=== PATIENT | female | born 1985 | race Caucasian/White ===

== ENCOUNTER 2017-08-04 10:35 | Emergency (ER) | payer SELFPAY ==
[~2017-08-04] VITALS: Ht 157.5 cm; Wt 43.0 kg
[2017-08-04 10:43] VITALS: BP 119/70; PULSE 72; RESP 16; TEMP 98.5; O2SAT 98
[2017-08-04 11:22] LABS: BLOOD, URINE NEG (NEG); GLUCOSE,URINE NEG (NEG); KETONE, URINE NEG (NEG); NITRITE,URINE NEG (NEG)
[2017-08-04] MEDS ORDERED: IBUP-1129 PO (11:22)
[2017-08-04] MEDS ORDERED: HYDR-3516 PO (11:22)
[2017-08-04 11:24] LABS: METHOD OF COLLECTION CLEAN CATCH; URINE COLOR YELLOW (YELLW/STRAW)
[2017-08-04 11:26] LABS: BACTERIA, URINE MOD /hpf; COMMENT (UR) CULTURE INDICATED; CULTURE IF INDICATED CULTURE INDICATED; SQUAMOUS EPITHELIAL CELL URINE 0-5 /hpf (0-5); WBC, URINE 0-2 /hpf (0-5)
[2017-08-04] MEDS ORDERED: KETOROLAC TROMETHAMINE 30 MG/ML (IVP) VIAL IV PUSH ONE (11:30)
[2017-08-04] MEDS ORDERED: ONDANSETRON HCL 4 MG/2 ML VIAL IV PUSH ONE (11:30)
--- NOTE | 2017-08-04 11:31 | PD ---
HPI Chief Complaint: Flank/Kidney Pain Time Seen by Provider: 11:21 Travel History International Travel<30 days: No Contact w/Intl Traveler<30days: No Traveled to known affect area: No History of Present Illness HPI 32yo F with PMH of frequent UTIs here with right sided back pain. States she has been having urinary symptoms for 1 month and told bactrim that she had before for 7 days. However, the urinary symptoms has not improved and now she has been having right back pain for 2 weeks. Pain is sharp, constant and nonradiating. She took ibuprofen and oxycodone which helped with pain. Associated with chills and nausea. Denies any fever, chest pain, sob, vomiting , abdominal pain, vaginal discharge, trauma, focal weakness or numbness. Pt is on her menstrual period right now. PFSH Past Medical History Asthma: Yes (EXERCISE INDUSED - NO MEDS) Blood Disorders: No Cancer: No Cardiovascular Problems: Yes High Cholesterol: Yes Diminished Hearing: No Endocrine: No Gastrointestinal Disorders: No Genitourinary: No Immune Disorder: No Implanted Vascular Access Dvce: No Musculoskeletal: No Neurologic: No Psychiatric: No Reproductive: No Respiratory: No Pancreatitis: Yes (past med hx of) ?: Not LMP: 07/31/17 : 0 Past Surgical History Section: Yes Oral Surgery: Yes (WISDOM TEETH 2000) Social History Alcohol Use: Yes (monthly , socially) Tobacco Use: Yes (1 ppd) Substance Use: No Allergies-Medications (Allergen,Severity, Reaction): Coded Allergies: No Known Allergies (Verified , 08/04/17) Reported Meds & Prescriptions Reported Meds & Active Scripts Active Reported Motrin Ib (Ibuprofen) 200 Mg Tablet 800 Mg PO ONCE Hydrocodone-Acetaminophen 5-325 mg Tab 1 Tab PO Q6H PRN Review of Systems Except as stated in HPI: all other systems reviewed are Neg Physical Exam Narrative GENERAL: 32yo F in mild distress. SKIN: Focused skin assessment warm/dry. HEAD: Atraumatic. Normocephalic. EYES: Pupils equal and round. No scleral icterus. No injection or drainage. CARDIOVASCULAR: Regular rate and rhythm. No murmur appreciated. RESPIRATORY: No accessory muscle use. Clear to auscultation. Breath sounds equal bilaterally. GASTROINTESTINAL: Abdomen soft, non-tender, nondistended. No rebound tenderness or guarding. BACK: No midline ttp thoracic or lumbar spine. +Mild CVA tenderness on right. MUSCULOSKELETAL: No obvious deformities. No clubbing. No cyanosis. No edema. NEUROLOGICAL: Awake and alert. No obvious cranial nerve deficits. Motor grossly within normal limits. Normal speech. Sensation intact. PSYCHIATRIC: Appropriate mood and affect; insight and judgment normal. Data Data Last Documented VS Vital Signs Date Time Temp Pulse Resp B/P (MAP) Pulse Ox O2 Delivery O2 Flow Rate FiO2 08/04/17 10:43 98.5 72 16 119/70 (86) 98 Room Air Orders Orders Urinalysis - C+S If Indicated (08/04/17 10:59) Ed Urine Pregnancytest Poc (08/04/17 10:59) Urine Culture (08/04/17 11:00) Complete Blood Count With Diff (08/04/17 11:27) Basic Metabolic Panel (Bmp) (08/04/17 11:27) Lactic Acid Sepsis Protocol (08/04/17 11:27) Lipase (08/04/17 11:27) Ondansetron Inj (Zofran Inj) (08/04/17 11:30) Ketorolac Inj (Toradol Inj) (08/04/17 11:30) Ceftriaxone Inj (Rocephin Inj) (08/04/17 12:30) Morphine Inj (Morphine Inj) (08/04/17 13:15) Labs Laboratory Tests Test 08/04/17 11:00 08/04/17 11:40 Urine Collection Type CLEAN CATCH Urine Color YELLOW Urine Turbidity CLEAR Urine pH 7.0 Urine Specific [place] 1.012 Urine Protein NEG mg/dL Urine Glucose (UA) NEG mg/dL Urine Ketones NEG mg/dL Urine Occult Blood NEG Urine Nitrite NEG Urine Bilirubin NEG Urine Leukocyte Esterase NEG Urine WBC 0-2 /hpf Urine Squamous Epithelial Cells 0-5 /hpf Urine Bacteria MOD /hpf Microscopic Urinalysis Comment CULTURE INDICATED Urine Collection Time 11:00 White Blood Count 8.4 TH/MM3 Red Blood Count 4.28 MIL/MM3 Hemoglobin 12.1 GM/DL Hematocrit 37.0 % Mean Corpuscular Volume 86.6 FL Mean Corpuscular Hemoglobin 28.3 PG Mean Corpuscular Hemoglobin Concent 32.7 % Red Cell Distribution Width 13.9 % Platelet Count 307 TH/MM3 Mean Platelet Volume 8.3 FL Neutrophils (%) (Auto) 67.1 % Lymphocytes (%) (Auto) 25.5 % Monocytes (%) (Auto) 6.3 % Eosinophils (%) (Auto) 0.8 % Basophils (%) (Auto) 0.3 % Neutrophils # (Auto) 5.7 TH/MM3 Lymphocytes # (Auto) 2.1 TH/MM3 Monocytes # (Auto) 0.5 TH/MM3 Eosinophils # (Auto) 0.1 TH/MM3 Basophils # (Auto) 0.0 TH/MM3 CBC Comment DIFF FINAL Differential Comment Blood Urea Nitrogen 10 MG/DL Creatinine 0.62 MG/DL Random Glucose 90 MG/DL Calcium Level 8.9 MG/DL Sodium Level 140 MEQ/L Potassium Level 3.9 MEQ/L Chloride Level 106 MEQ/L Carbon Dioxide Level 27.6 MEQ/L Anion Gap 6 MEQ/L Estimat Glomerular Filtration Rate 110 ML/MIN Lactic Acid Level 0.6 mmol/L Lipase 173 U/L MDM Medical Decision Making Medical Screen Exam Complete: Yes Emergency Medical Condition: Yes Differential Diagnosis Pyelonephritis vs. musculoskeletal pain Narrative Course 32yo well appearing female here with right sided back pain. Pain is more right flank area. No fever, IVDA, focal weakness or numbness. Labs reviewed, no leukocytosis. Creatinine normal. Lactic acid normal. Lipase normal. No abdominal pain on exam. UA showed no blood. moderate bacteria and culture indicated so will give ceftriaxone 1gm IV here. Pt given toradol and zofran and reevaluated at bedside and said that nausea has resolved but pain has not improved. Pt given morphine with improvement of pain. Return precautions given. Diagnosis Primary Impression: UTI (urinary tract infection) Qualified Codes: N39.0 - Urinary tract infection, site not specified Patient Instructions: General Instructions Departure Forms: Tests/Procedures Additional Instructions: Please follow up with [facility] in 3-7 days. Return to the ED if symptoms worsen. Med/Other Pt SpecificInfo: Prescription(s) given Scripts Acetaminophen (Tylenol) 325 Mg Tab 650 MG PO Q6H Y for PAIN SCALE 1 TO 4, #20 TAB 0 Refills Prov: Silvana Drew 08/04/17 Cephalexin (Keflex) 500 Mg Cap 500 MG PO Q12H for Infection for 7 Days, #14 CAP 0 Refills Prov: Silvana Drew 08/04/17 Disposition: 01 DISCHARGE HOME Condition: Stable Silvana Drew DO Aug 04, 2017 11:31
[2017-08-04 11:49] LABS: AUTOMATED NEUTROPHIL # 5.7 TH/MM3 (1.8-7.7); BASOPHIL % 0.3 % (0.0-2.0); EOSINOPHIL # 0.1 TH/MM3 (0-0.4); EOSINOPHIL % 0.8 % (0.0-4.0); HEMO FLAGS DIFF FINAL; LYMPH % 25.5 % (9.0-44.0); LYMPHOCYTE # 2.1 TH/MM3 (1.0-4.8); MEAN CELL VOLUME 86.6 FL (80.0-100.0); MEAN CORPUSCULAR HEMOGLOBIN 28.3 PG (27.0-34.0); MEAN CORPUSCULAR HGB CONC 32.7 % (32.0-36.0); MONO % 6.3 % (0.0-8.0); NEUT % 67.1 % (16.0-70.0); PLATELET COUNT 307 TH/MM3 (150-450); RED BLOOD COUNT 4.28 MIL/MM3 (4.00-5.30); RED CELL DISTRIBUTION WIDTH 13.9 % (11.6-17.2); WHITE BLOOD COUNT 8.4 TH/MM3 (4.0-11.0)
[2017-08-04 11:59] LABS: POTASSIUM 3.9 MEQ/L (3.5-5.1)
[2017-08-04 12:03] LABS: BICARBONATE 27.6 MEQ/L (21.0-32.0)
[2017-08-04] MEDS ORDERED: cefTRIAXone INJ 1,000 MG in SODIUM CHLORIDE 0.9% INJ 100 ML IV ONE (12:30)
[2017-08-04] MEDS ORDERED: CEPH-460 PO (13:10)
[2017-08-04] MEDS ORDERED: TYLE325T PO (13:10)
[2017-08-04] MEDS ORDERED: MORPHINE SULFATE 4 MG/ML INJ IV PUSH ONE (13:15)
[2017-08-04 14:06] VITALS: BP 122/74
== END 2017-08-04 14:08 | disposition home or self-care (01) ==
LOC: PHED 10:35
DX: N39.0 Urinary tract infection, site not specified (principal); B96.20 Unspecified Escherichia coli [E. coli] as the cause of diseases classified elsewhere; F17.200 Nicotine dependence, unspecified, uncomplicated
CPT/HCPCS: 80048; 81001; 83605; 83690; 84703; 85025; 87077; 87086; 87186; 96365; 96375; 99284; J0696; J1885; J2270; J2405